=== PATIENT | female | born 1990 | race Asian ===

== ENCOUNTER 2017-07-24 08:20 | Emergency (ER) | payer OTHER ==
[2017-07-24 09:22] LABS: BILIRUBIN,URINE NEGATIVE (NEGATIVE); GLUCOSE, URINE (UA) NEGATIVE (NEGATIVE); KETONES,URINE (UA) NEGATIVE (NEGATIVE); LEUKOCYTE ESTERASE, URINE NEGATIVE (NEGATIVE); NITRITE,URINE POSITIVE (NEGATIVE); OCCULT BLOOD,URINE NEGATIVE (NEGATIVE); PROTEIN,URINE NEGATIVE (NEGATIVE); UROBILINOGEN,URINE 1 (NORMAL) E.U./dL (NORMAL)
[2017-07-24 09:31] LABS: CLARITY,URINE CLEAR (CLEAR)
[2017-07-24 09:32] LABS: HCG UR QUAL NEGATIVE
[2017-07-24 09:50] LABS: BACTERIA,URINE Rare /HPF (None Seen); RBC,URINE 0-5 /HPF (0-5); SQUAMOUS EPITHELIAL CELL,UR MOD Squamous (<= Few)
[2017-07-24] MEDS ORDERED: AMOX/CLAV 875 MG/125 MG TABLET PO STA (10:23)
--- NOTE | 2017-07-24 10:26 | ED Physician Documentation ---
PD HPI FEMALE - Stated complaint Stated Complaint: FEMALE - Chief complaint Chief Complaint: Abd Pain - History obtained from History obtained from: Patient - History of Present Illness Timing - onset: How many days ago (few) Timing - details: Gradual onset Associated symptoms: Genital sore/lesion Contributing factors: No: Similar symptoms before: Diagnosis (I&D of Bartholin's duct cyst) - Additional information Additional information: The patient is not otherwise healthy [employer] [place] female who presents with painful swollen area in her right labia. It is similar to episodes she has had twice in the past, for which she has undergone incision and drainage of Bartholin duct cyst. The last time was about one year ago. She denies history of MRSA. She denies fever or vaginal discharge. Review of Systems Constitutional: denies: Fever Nose: denies: Congestion Throat: denies: Sore throat Respiratory: denies: Dyspnea, Cough GI: denies: Abdominal Pain, Nausea, Vomiting : denies: Dysuria, Discharge, Vaginal bleeding Skin: denies: Rash Musculoskeletal: denies: Back pain Neurologic: denies: Headache PD PAST MEDICAL HISTORY - Past Medical History Cardiovascular: None Respiratory: None Neuro: None Endocrine/Autoimmune: None GI: None - Present Medications Home Medications: Ambulatory Orders Medication Instructions Recorded Confirmed Amox/Clav 875/125 [Augmentin] 1 each PO Q12H #14 tablet 07/24/17 Nitrofurantoin Monohyd/M-Cryst 100 mg PO BID 07/24/17 07/24/17 [Macrobid 100 mg Capsule] Phenazopyridine [Pyridium] 200 mg PO TID 07/24/17 07/24/17 - Allergies Allergies/Adverse Reactions: Allergies Allergy/AdvReac Type Severity Reaction Status Date / Time Sulfa (Sulfonamide Allergy Hives Verified 07/24/17 08:38 Antibiotics) - Social History Does the pt smoke?: No Smoking Status: Never smoker PD ED PE NORMAL - Vitals Vital signs reviewed: Yes (normal) - General General: Alert and oriented X 3, Well developed/nourished - HEENT HEENT: Atraumatic, Pharynx benign - Neck Neck: No adenopathy - Cardiac Cardiac: RRR, No murmur - Respiratory Respiratory: No respiratory distress, Clear bilaterally - Abdomen Abdomen: Soft, Non tender - Female Female : Theatre Director present - Back Back: No CVA TTP - Derm Derm: No rash - Extremities Extremities: No edema - Neuro Neuro: Alert and oriented X 3, No motor deficit, Normal speech PD ED PE EXPANDED - Female Female : Theatre Director present, Other (Right labia is swollen and tender to palpation, consistent with Bartholin's cyst.). No: Vaginal Bleeding, Vaginal Discharge Results - Vitals Vitals: Oxygen O2 Source Room air - Labs Labs: Laboratory Tests 07/24/17 07/24/17 09:15 09:15 Urine Color YELLOW Urine Clarity CLEAR Urine pH 6.0 Ur Specific [place] 1.010 1.010 Urine Protein NEGATIVE Urine Glucose (UA) NEGATIVE Urine Ketones NEGATIVE Urine Occult Blood NEGATIVE Urine Nitrite POSITIVE H Urine Bilirubin NEGATIVE Urine Urobilinogen 1 (NORMAL) Ur Leukocyte Esterase NEGATIVE Urine RBC 0-5 Urine WBC 4-5 Ur Squamous Epith Cells MOD Squamous H Urine Bacteria Rare Ur Microscopic Review INDICATED Urine Culture Comments NOT INDICATED Urine HCG, Qual NEGATIVE Procedures - Abscess I&D (location) Right Labia Preparation: Betadine, Lidocaine 1%, With epi Incision: Incised with scalpel. No: Purulent drainage Other: Pt tolerated well, Antibiotic prescribed PD MEDICAL DECISION MAKING - ED course Complexity details: reviewed results, re-evaluated patient, considered differential, d/w patient ED course: The patient's presentation is most consistent with early Bartholin duct cyst, without pus detected upon scalpel incision of the involved area. Treatment in the emergency department included administration of Augmentin 875 mg orally. She is being discharged with prescription for Augmentin. I discussed with her the expected course of illness, antibiotic treatment and outpatient follow-up, as well as potentially worrisome signs or symptoms that should prompt reevaluation in the emergency department. Departure - Departure Disposition: 01 Home, Self Care Clinical Impression: Bartholin's duct cyst Condition: Stable Instructions: ED Bartholins Cyst IandD [facility] Prescriptions: Amox/Clav 875/125 [Augmentin] 1 each PO Q12H #14 tablet Comments: Apply hot soaks to the perineal region 2 or 3 times daily for the next 4 days. Take Augmentin twice daily as prescribed. Eat probiotic yogurt while on antibiotic therapy. You can use Tylenol or ibuprofen if needed for discomfort. Follow up with your primary physician within 1-2 weeks. Call to schedule an appointment. Return to the emergency department if you develop increasing pain or swelling in the perineal region, or otherwise worsening symptoms. Forms: Activity restrictions Discharge Date/Time: 07/24/17 10:40
[2017-07-24 10:42] VITALS: BP 122/63
== END 2017-07-24 10:40 | disposition home or self-care (01) ==
LOC: ED 08:20
DX: N75.0 Cyst of Bartholin's gland (principal)
CPT/HCPCS: 56420; 81001; 81025; 99283; A9270; 81003; 87086

== ENCOUNTER 2019-06-10 12:11 | Emergency (ER) | payer OTHER ==
[2019-06-10 12:22] VITALS: BP 117/69
--- NOTE | 2019-06-10 13:48 | ED Physician Documentation ---
PD HPI FEMALE - Stated complaint Stated Complaint: FEMALE - Chief complaint Chief Complaint: General - History obtained from History obtained from: Patient - History of Present Illness Timing - onset: How many days ago (few) Timing - duration: Days (few) Timing - details: Abrupt onset, Still present Associated symptoms: Vaginal pain Contributing factors: No: Exposed to STD Similar symptoms before: Diagnosis (has had labial abscess similar area a few times now. Gets better with meds.) Review of Systems Constitutional: denies: Fever, Chills GI: denies: Abdominal Pain, Nausea, Vomiting : denies: Dysuria, Discharge PD PAST MEDICAL HISTORY - Past Medical History Cardiovascular: None Respiratory: None Endocrine/Autoimmune: None GI: None - Past Surgical History Past Surgical History: No - Present Medications Home Medications: Ambulatory Orders Medication Instructions Recorded Confirmed Amox/Clav 875/125 [Augmentin] 1 each PO Q12H #14 tablet 07/24/17 Nitrofurantoin Monohyd/M-Cryst 100 mg PO BID 07/24/17 07/24/17 [Macrobid 100 mg Capsule] Phenazopyridine [Pyridium] 200 mg PO TID 07/24/17 07/24/17 Clindamycin HCl [Clindamycin 300MG 300 mg PO TID #21 capsule 06/10/19 CAP] Hydrocodone/Acetaminophen 1 each PO Q6H PRN #8 tablet 06/10/19 [Hydrocodon-Acetaminophen 5-325] - Allergies Allergies/Adverse Reactions: Allergies Allergy/AdvReac Type Severity Reaction Status Date / Time Sulfa (Sulfonamide Allergy Hives Verified 06/10/19 12:22 Antibiotics) - Social History Does the pt smoke?: No Smoking Status: Never smoker - Immunizations Immunizations are current?: Yes PD ED PE NORMAL - Vitals Vital signs reviewed: Yes - General General: Alert and oriented X 3, No acute distress, Well developed/nourished - Cardiac Cardiac: RRR, No murmur - Respiratory Respiratory: Clear bilaterally - Abdomen Abdomen: Soft, Non tender - Female Female : Slackman present, Other (right lower inner labia with focal area of swelling, redness, tenderness about 2 cm diameter. No drainage.) - Rectal Rectal: Deferred - Back Back: No CVA TTP - Derm Derm: Normal color, Warm and dry - Neuro Neuro: Alert and oriented X 3, No motor deficit, Normal speech Results - Vitals Vitals: Vital Signs - 24 hr 06/10/19 12:20 Temperature 36.7 C Heart Rate 81 Respiratory 18 Rate Blood Pressure 117/69 O2 Saturation 99 Oxygen O2 Source Room air - Labs Labs: Microbiology 06/10/19 14:54 Wound Culture - Preliminary Skin - Other Procedures - Abscess I&D (location) right inner labia Preparation: Lidocaine 2 % Incision: Incised with scalpel, Purulent drainage, Irrigated, Packed, Culture obtained Other: Pt tolerated well, Antibiotic prescribed PD MEDICAL DECISION MAKING - ED course Complexity details: considered differential, d/w patient Departure - Departure Disposition: Home, Self Care Clinical Impression: Abscess of right genital labia Condition: Stable Record reviewed to determine appropriate education?: Yes Instructions: Bartholin Cyst Abscess Prescriptions: Clindamycin HCl [Clindamycin 300MG CAP] 300 mg PO TID #21 capsule Hydrocodone/Acetaminophen [Hydrocodon-Acetaminophen 5-325] 1 each PO Q6H PRN #8 tablet PRN Reason: pain Comments: Cleanse the area gently with soap and water. Be careful to not pull out the wick/packing for a day or 2 until it seems like is not draining pus anymore. You can then remove it gently. Anti-inflammatories such as ibuprofen or naproxen 2-3 times a day. Add Tylenol or pain medicine if needed. Clindamycin antibiotic as directed for a week. Follow-up Thursday as planned with your gynecology. Return if worsening symptoms. Discharge Date/Time: 06/10/19 15:16
[2019-06-10] MEDS ORDERED: IBUPROFEN 600 MG TABLET PO STA (14:15)
[2019-06-10] MEDS ORDERED: HYDROcod/ACETAM 5/325 MG TABLET PO STA (14:15)
[2019-06-10] MEDS ORDERED: CLINDAMYCIN 150 MG CAPSULE PO STA (14:15)
== END 2019-06-10 15:16 | disposition home or self-care (01) ==
LOC: ED 12:11
DX: N76.4 Abscess of vulva (principal)
CPT/HCPCS: 56405; 87070; 87077; 87181; 87205; 99283; A9270; 56420